=== PATIENT | female | born 1990 | race Caucasian/White ===

== ENCOUNTER 2016-06-16 18:30 | Inpatient (IN) | payer OTHER ==
[~2016-06-16] VITALS: Ht 152.4 cm; Wt 69.4 kg
[2016-06-16] MEDS ORDERED: Lactated Ringer's 1,000 ML IV PRN (20:01)
[2016-06-16] MEDS ORDERED: Hemorrhage Kit, Post Partum XX ONE (20:05)
[2016-06-16] MEDS ORDERED: Oxytocin 30 Units/500 mL LR 30 UNITS in IV Premix 1 EACH IV PRN (20:05)
[2016-06-16] MEDS ORDERED: Oxytocin 10 Unit/mL Inj IM PRN (20:05)
[2016-06-16] MEDS ORDERED: Methylergonovine 0.2 mg/mL Inj IM PRN (20:05)
[2016-06-16] MEDS ORDERED: fentaNYL-PF 50 mCg/mL 2 mL Inj IVPUSH PRN (20:05)
[2016-06-16] MEDS ORDERED: Sodium Chloride LOK Flush 10 mL Syringe IVFLUSH PRN (20:05)
[2016-06-16] MEDS ORDERED: Carboprost 250 mCg/mL Inj IM PRN (20:05)
[2016-06-16] MEDS ORDERED: Ondansetron 2 mg/mL 2 mL Inj IVPUSH PRN (20:05)
--- NOTE | 2016-06-16 20:28 | HP ---
[address] [address] HISTORY AND PHYSICAL PATIENT: ASHLEY ANDERSON : 1990 MR#: [id number] ADMIT: 06/16/2016 JOB ID: [id number] CHIEF COMPLAINT: Contractions. HISTORY OF PRESENT ILLNESS: This is a 25-year-old obstetrical patient of [facility] who is a 2, para 1, at 40 and 4/7th weeks estimated gestational age, who presents complaining of four hours of increasing intensity of contractions and stating that they are about every three minutes apart. She has no other acute complaints. Denies any unusual vaginal discharge. Baby has been moving very frequently. She denies any unusual abdominal pain. Also, denies any recent illness. No chest pain, palpitations, or shortness of breath. No swelling in her feet. No blurry vision or unusual headaches. Upon presentation, she is about 2 cm, 70% effaced, -3 station, with the baby in a vertex position, tess about every three minutes. Her prior was with twins and she delivered in September 2013 with one baby being born vaginally and the second being born secondary to breech position. This patient is wanting a procedure. Considering her prior and wanting to deliver vaginally, it was decided to admit her for expectant management and place a Pittman catheter in her cervix to help her cervix dilate and move her towards delivery. This plan was discussed with Dr. Martinez this evening. PAST MEDICAL HISTORY: Remarkable for troubles with migraines, seasonal allergies, history of pyelonephritis with the last one in 2011. Also, history of eczema. Otherwise, her medical history is unremarkable. SURGICAL HISTORY: Significant for in 2011, as well as an appendectomy at 13 years old. FAMILY HISTORY: Significant for diabetes in a maternal aunt, hypertension in paternal grandmother, and breast cancer in maternal grandmother. Otherwise is noncontributory. ALLERGIES: The patient has an allergy to SULFA causing a topical reaction of some sort and also an intolerance of PENICILLIN, KEFLEX, OXYCODONE, and MORPHINE causing her to vomit or just be "wigged out." MEDICATIONS: vitamins. Otherwise, she is on no regular medications. SOCIAL HISTORY: Patient lives on [address] with her and their two sons. 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 She has never used any tobacco, denies alcohol use or drug use. OBSTETRICAL HISTORY: Prior twin delivery in September 2013 as mentioned above. This gestation has been unremarkable except for a gap of not seeing her for three months from 15 weeks to 28 weeks because she was sick and moving her household. She has seen Obstetrics in consultation because of her history of and wanting a . She has seen Dr. Martinez who has agreed to her plans for with close observation. LABORATORY TESTS: Her blood type is O-positive. She is nonimmune to rubella. Serology is negative as well as hepatitis B and HIV and antibody screen x2. Hematocrit initially at seven weeks was 42 and at 28 weeks was 33. MSAFP test was negative. Pap smear with the initial exam was normal and GC, chlamydia was negative. Diabetic screen was negative at 28 weeks. GBS test was negative. REVIEW OF SYSTEMS: See HPI above. OBJECTIVE: A well-developed, well-nourished woman in no apparent distress, at least between contractions. She is afebrile. Pulse is 90, respiratory rate 16, blood pressure 122/71. Lungs are clear to auscultation bilaterally with good air movement. Heart is regular rate and rhythm. No significant murmurs heard. Abdomen is gravid, otherwise benign. She has normoactive bowel sounds. Extremities showed no edema and normal deep tendon reflexes. Cervical exam: She is 2 cm, 70% effaced, -3 station, vertex position with the baby's head well engaged. She is tess every three minutes or so. PLAN: To admit the patient for expectant management and provide cervical dilation with a modified Pittman tube as mentioned above. Otherwise, provide routine expectant management. The patient is not really wanting to have an epidural, so will try to provide as much supportive care as we can and proceed from there. I discussed routine expectant management issues and procedures. Also, discussed potential complications and the usual obstetrical procedures to address them, but also the possible need for surgical care if a becomes needed. I also discussed the possible need for assistance with vacuum extraction and the associated potential complications. All of her questions were answered and she expressed understanding of these issues and is willing to proceed. I have consulted with Dr. Martinez who is foot and ankle surgeon and is my obstetrical backup today. ZARINA
[2016-06-16 21:16] LABS: Mean Corpuscular Hemoglobin 24.2 pg (27.0-35.0); Mean Corpuscular Volume 77.6 fL (81-100)
[2016-06-17] MEDS ORDERED: Lactated Ringer's 1,000 ML IV SCH (05:47)
[2016-06-17] MEDS ORDERED: Oxytocin 10 Unit/mL Inj IM PRN (05:50)
[2016-06-17] MEDS ORDERED: Carboprost 250 mCg/mL Inj IM PRN (05:50)
[2016-06-17] MEDS ORDERED: Hemorrhage Kit, Post Partum XX ONE (05:50)
[2016-06-17] MEDS ORDERED: oxyCODONE-Acetamin 5-325 mg Tablet PO PRN (05:50)
[2016-06-17] MEDS ORDERED: Witch Hazel-Glycerin Pads TOPICAL PRN (05:50)
[2016-06-17] MEDS ORDERED: LANOlin HPA 7 Gm Ointment TOPICAL PRN (05:50)
[2016-06-17] MEDS ORDERED: Measles-Mumps-Rubella Vaccine 0.5 mL Inj SUBQ ONE (05:50)
[2016-06-17] MEDS ORDERED: Benzocaine (Dermoplast) 20% 60 Gm Spray TOPICAL PRN (05:50)
[2016-06-17] MEDS ORDERED: Methylergonovine 0.2 mg/mL Inj IM PRN (05:50)
[2016-06-17] MEDS ORDERED: Oxytocin 30 Units/500 mL LR 30 UNITS in IV Premix 1 EACH IV PRN (05:50)
[2016-06-17] MEDS ORDERED: Ascorbic Acid 500 mg Tablet PO SCH (08:00)
--- NOTE | 2016-06-17 09:32 | OP ---
[address] [address] OPERATIVE REPORT PATIENT: ASHLEY ANDERSON : 1990 MR#: [id number] ADMIT: 06/16/2016 JOB ID: [id number] DATE OF SURGERY: 06/17/2016 SURGEON: Gonzalez Chang MD PREOPERATIVE DIAGNOSIS(ES): POSTOPERATIVE DIAGNOSIS(ES): DELIVERY NOTE: Patient had a spontaneous vaginal delivery as described below. Please see my admission H and P for her admitting circumstances. Th patient was admitted at 40 weeks and 3 days estimated gestational age with regular contractions. She was 2.5 cm or so with a cervix that was 70% effaced, and despite the contractions regularly for a couple of hours her cervix still really was not changing. Dr. Martinez, my obstetrical colleague, who is front end wheel loader operator and my databases software consultant was available and recommended placement of a cervical balloon for cervical dilation. This was placed by Dr. Martinez at about 2215 on June 16. At that time, it was placed she was about 2.5 cm and 70% effaced, with the baby in a vertex position at about -3 station. The catheter worked excellently and fell out at 0135 on June 17, and she was found to be about 6 cm at the time. She continued to contract regularly. She was not using any medical pain management, specifically declined epidural as well as narcotics. heart tracing remained very reactive in fact much more so than normal and had a Systane variability that was difficult to determine what the heart rate baseline was. It seemed to range from 150-180 generally, although throughout the whole labor process demonstrated excellent variability with excellent accelerations that were very frequent. She was found to be completely dilated and effaced at 0442 and began pushing. The baby's head was in an occiput anterior position. She delivered the baby's head. There was no nuchal cord noted and then the rest of the delivery was completed at 4:54 over an intact perineum. The baby was placed on mom's tummy and 60 seconds were waited and then the cord was clamped and cut. The placenta delivered spontaneously and intact at 0500. Inspection of the perineum revealed no lacerations. Also inspection of the cervix also showed no cervical injury. Estimated blood loss 150 cc. The baby was a baby girl with Apgars of 9 and 9, and weight is still pending. Afterwards she continued to have vaginal bleeding that was more than usual and 800 mg of Cytotec was inserted rectally for hemostasis. We will continue to monitor very closely. Routine orders have been written.
[2016-06-18 06:24] LABS: Mean Corpuscular Volume 78.5 fL (81-100)
--- NOTE | 2016-06-18 08:03 | PCM.DIOB ---
Obstetrical Disch Instruction Date of Service: Jun 18, 2016 Dates of Hospitalization Date of Hospital Admission Jun 16, 2016 at 19:15 Providers Admitting Physician: Gonzalez Chang MD Primary Care Physician: Gonzalez Chang MD Attending Physician: Gonzalez Chang MD Discharge Diagnosis Problems: (1) Normal spontaneous vaginal delivery Status: Resolved ICD Code: O80 Diet Discharge Diet: No restrictions Activity Discharge Activity-General: Pelvic Rest for 6 weeks, Try not to overdue, Be up and about, Balance rest and activity Dressing and Incisional Care Hygiene: May shower Follow Up Plan Follow Up Plan f/u with me in 6 weeks and as needed. Follow-up Provider (F9): Gonzalez Chang MD Follow-up appointment: Weeks (six) Gonzalez Chang MD Jun 18, 2016 08:03
[2016-06-18 09:17] VITALS: BP 113/58; PULSE 78; RESP 16
--- NOTE | 2016-06-18 16:39 | DIS ---
[address] [address] DISCHARGE SUMMARY PATIENT: ASHLEY ANDERSON : 1990 MR#: [id number] ADMIT: 06/16/2016 JOB ID: [id number] DIS: 06/18/2016 DISCHARGE DIAGNOSIS: Term , resolved, with spontaneous vaginal delivery. CONSULTATIONS: None. PROCEDURES: The patient had a spontaneous vaginal on the morning of June 17. Please see my delivery note for full details. HISTORY AND PHYSICAL: Please see my admission H and P for full details of her presenting circumstances. HOSPITAL COURSE: The patient presented to the Center with increasing frequency and intensity of contractions at 40 3/7ths weeks gestational age. After discussion with my obstetrical backup/consultation, we decided to admit her for expectant management and to induce her labor by using a balloon catheter for cervical dilation. This was performed and resulted in excellent dilation of the cervix, and she then proceeded fairly nicely in labor to completely dilated and effaced and had a vaginal without any significant problems. Her course has been unremarkable, and she has no acute complaints specifically at this time. Denies any significant breast discomfort or perineal discomfort and reports decreasing lochia. DISCHARGE PHYSICAL EXAM: Shows her vital signs to be normal. Lungs are clear to auscultation bilaterally with good air movement. Heart is regular rate and rhythm. No significant murmurs heard. Abdomen is benign. Uterus is firm and below the umbilicus. Extremities show no edema and normal deep tendon reflexes. ASSESSMENT AND PLAN: Status post spontaneous vaginal delivery approximately 24 hours ago. The patient is doing well and plan on discharging home today. She declines any discharge medications, stating that she has some ibuprofen at home she can use if she needs it. The patient was told to follow up with me in six weeks, otherwise as needed.
== END 2016-06-18 09:46 | disposition home or self-care (01) | DRG 560 ==
LOC: FBCO 18:30 → FBC 19:15
PROVIDERS: ADMIT Family Medicine; ATTEND Family Medicine
PROC: 10E0XZZ Delivery of Products of Conception, External Approach (ICD-10-PCS; principal; 2016-06-17)
DX: O80 Encounter for full-term uncomplicated delivery (principal); Z37.0 Single live birth; Z3A.40 40 weeks gestation of pregnancy

== ENCOUNTER 2016-10-01 18:19 | Emergency (ER) | payer OTHER ==
[~2016-10-01] VITALS: Ht 152.4 cm; Wt 56.8 kg
[2016-10-01 18:24] VITALS: BP 109/62; PULSE 80; RESP 16; O2SAT 98
[2016-10-01 19:38] LABS: BASOPHILS % (AUTO) 0.4 % (0-3); EOSINOPHILS % (AUTO) 3.4 % (0-5); MONOCYTES % (AUTO) 8.8 % (4-12); Mean Corpuscular Hemoglobin 26.2 pg (27.0-35.0); Mean Corpuscular Volume 78.5 fL (81-100); NEUTROPHILS % (AUTO) 50.2 % (40-74); Platelet Count 249 bil/L (150-400)
[2016-10-01 19:55] LABS: Magnesium 1.8 mg/dL (1.6-2.6)
[2016-10-01 22:39] LABS: APPEARANCE,URINE HAZY (CLEAR,HAZY); COLOR,URINE YELLOW (YELLOW); OCCULT BLOOD,URINE TRACE (NEGATIVE); PH,URINE 6.5 (5.0-8.0); UROBILINOGEN,URINE NORMAL (NORMAL)
--- NOTE | 2016-10-02 00:01 | ED.REPORT ---
HPI-Abd Pain F Under 40 Date of Service Oct 01, 2016 ED Provider: Forest Mcguire MD Patient is a 26-year-old female with history of similar episodes approximately 3 years ago who comes to the emergency department with a 10 week history of occasional abdominal pain presenting as an attack. She experiences acute onset bloating, epigastric pain described as pressure associated with right mid upper back pressure as well. She notices no association with certain foods and has tried various elimination diet. Symptoms seem to be relieved with some burping or belching and sometimes with small sips of soda. She will occasionally have vomiting as well. These episodes will last 2-8 hours. Patient is 15 weeks from [place] and had twin approximately 3 years ago. After which she had similar symptoms that resolved on their own after a few months. Her mother has had similar symptoms and had cholecystectomy. Patient reports occasional diarrhea and lifelong occasional constipation. She is having no burning or pain with urination. She is not experiencing any headache, chest pain, shortness of breath, dizziness or lightheadedness. Nursing Notes Stated Complaint: CHEST PAIN, ABDOMINAL PAIN Chief Complaint: Female Abdominal Pain Nursing Notes Reviewed: Yes Allergies: Coded Allergies: Penicillins (Verified Allergy, Severe, Anaphylaxis, 10/01/16) cephalexin (Verified Allergy, Severe, Anaphylaxis, 10/01/16) Uncoded Allergies: SULFA (Allergy, Severe, Anaphylaxis, 10/01/16) narcotics (Adverse Reaction, Intermediate, 06/16/16) nausea, hallucinations No Active Prescriptions or Reported Meds General Time Seen by MD: 22:05 Chief Complaint Abdominal pain Hx Obtained From: Patient Arrived By: Walk-in Sudden in Onset?: No Onset Occurred: More than a week ago... (2 months) Past Medical History Past Medical History Episodic epigastric/RUQ abdominal pain Past Surgical History section 2 Appendectomy 2003 [place] tooth extraction Family History Mother with cholelithiasis and cholecystectomy Smoking History Never Smoker Social History Alcohol Use: Denies alcohol use Drug Use: Denies drug use Other Social History: Good social support, Ambulatory Status Independent Review of Systems A comprehensive review of systems was conducted with the patient and found to be negative except as above in the History of Present Illness. Physical Exam Initial Vital Signs Vital Signs (First) Date Time Temp Pulse Resp B/P Pulse Ox O2 Delivery O2 Flow Rate FiO2 10/01/16 18:24 36.7 80 16 109/62 98 Room Air Initial VS: Reviewed, Vital signs normal Head / Eyes: Atraumatic, Normocephalic, PERRL ENT: Mucous membranes moist, Conjunctiva normal, No scleral icterus Neck: Supple, Non-tender, Full range of motion Lymphatic: No lymphadenopathy Extremities: Vascular intact, Neuro intact, No swelling, No tenderness Skin: Warm, Dry, No cyanosis Neurologic: Alert, Oriented, Nonfocal Psychiatric: Mood/affect normal, Behavior normal, Normal thought content General/Constitutional: Awake, Alert, No acute distress, Well appearing Respiratory / Chest: Breath sounds NL, Breath sounds = bilat, No respiratory distress, No rales, No rhonchi, No wheezing Cardiovascular: Heart rate NL, Regular rhythm, Heart sounds NL, Peripheral circulation NL Abdomen: Atraumatic, Soft, No guarding, BS normoactive, No distention Tenderness/Guarding/Rebound: Positive: Tender RUQ... (Moderate) Easily reducible small ventral hernia, palpable diastases recti Back: Atraumatic, Non-tender Interpretation & Diagnostics Lab Results Interpretation Result Diagram: 10/01/16192610/01/161926 Test 10/01/16 19:27 10/02/16 00:03 White Blood Count 7.7th/mm3 (3.8-10.1) Red Blood Count 4.74mil/mm3 (3.90-5.20) Hemoglobin 12.4g/dL (12.0-15.6) Hematocrit 37.2% (35.0-46.0) Mean Corpuscular Volume 78.5fL (81-100) Mean Corpuscular Hemoglobin 26.2pg (27.0-35.0) Mean Corpuscular Hemoglobin Concent 33.3% (32.0-37.0) Red Cell Distribution Width 15.7% (12.3-15.4) Platelet Count 249bil/L (150-400) Neutrophils (%) (Auto) 50.2% (40-74) Lymphocytes (%) (Auto) 37.1% (14-46) Monocytes (%) (Auto) 8.8% (4-12) Eosinophils (%) (Auto) 3.4% (0-5) Basophils (%) (Auto) 0.4% (0-3) Sodium Level 142mEq/L (134-144) Potassium Level 3.9mEq/L (3.5-5.2) Chloride Level 105mEq/L (97-108) Carbon Dioxide Level 21mmol/L (18-29) Blood Urea Nitrogen 15mg/dL (6-20) Creatinine 0.65mg/dL (0.57-1.00) Estimat Glomerular Filtration Rate 159mL/min (>59) Glucose Level 87mg/dL (60-99) Calcium Level 9.1mg/dL (8.5-10.1) Magnesium Level 1.8mg/dL (1.6-2.6) Total Bilirubin 0.2mg/dL (0.0-1.2) Aspartate Amino Transf (AST/SGOT) 23U/L (0-50) Alanine Aminotransferase (ALT/SGPT) 21U/L (0-32) Alkaline Phosphatase 79U/L (25-150) Total Protein 7.4g/dL (6.4-8.4) Albumin 4.4g/dL (3.4-5.0) Lipase 25U/L (13-60) Hold Dewey Top Tube Received (Received) Urine Color Straw (YELLOW) Urine Appearance Hazy (CLEAR,HAZY) Urine pH 6.5 (5.0-8.0) Urine Specific [place] 1.020 (1.003-1.035) Urine Protein Negativemg/dL (NEG,TRACE) Urine Glucose (UA) Negativemg/dL (NEGATIVE) Urine Ketones Negativemg/dL (NEGATIVE) Urine Occult Blood Negative (NEGATIVE) Urine Nitrite Negative (NEGATIVE) Urine Bilirubin Negative (NEGATIVE) Urine Urobilinogen Normalmg/dL (NORMAL) Urine Leukocyte Esterase Negative (NEGATIVE) Urine RBC 0-2/hpf (0-2) Urine WBC 0-5/hpf (0-5) Urine Epithelial Cells Few/hpf (NONE-MOD) Urine Crystals None seen (NONE SEEN) Urine Bacteria None/hpf (NONE-FEW) Urine Hyaline Casts None/lpf (NONE) Urine Granular Casts None seen (NONE SEEN) Urine Waxy Casts None seen (NONE SEEN) Urine Red Blood Cell Casts None seen (NONE SEEN) Urine White Blood Cell Casts None seen (NONE SEEN) Urine Mucus None seen (None Seen) Urine Trichomonas None seen (NONE SEEN) Urine Yeast None (NONE SEEN) Urinalysis Comment Renal epi seen Urine Culture Reflexed Not indicated Lab Results Interpretation: Normal lipase, initial urine with epithelial cells- retested, MCV decreased-discussed with patient for outpatient workup. Re-Eval/Medical Decision Med Decision/Clinical Course Patient is a 26-year-old female presents with colicky epigastric and right upper quadrant abdominal discomfort described as an attack with bloating and nausea. She has no previous imaging or workup for gallbladder disease however she feels that her gallbladder is related to what is going on. Her mother had gallbladder problems with cholelithiasis and subsequent cholecystectomy. Laboratory evaluation shows no evidence of leukocytosis, transaminases, bilirubin, and platelets are normal indicating normal liver function. Ultrasound preliminary report shows no evidence of cholelithiasis, cholecystitis , or biliary ductal dilation. Symptoms may in part be related to gastritis. Patient's primary care provider is Dr. Richey. She has an appointment to follow up with him within the next 2 weeks. Counseled Regarding: Diagnosis, Need for follow-up, When/why to return to ED Discharge & Departure Primary Impression: Gastritis Gastritis type: unspecified gastritis Chronicity: chronic Gastritis bleeding: without bleeding Qualified Code: K29.50 - Unspecified chronic gastritis without bleeding Disposition: Home Discharge Condition All VS Reviewed: Yes Condition: Stable Patient Instructions: Acute Abdominal Pain (ED), Gastritis (ED) Additional Instructions: Thank you for entrusting us with your care today. Abdominal ultrasound showed no evidence of stones in your gallbladder or infection in the area. There was no evidence of obstruction either. It is possible that you are not having some inflammation of your GI tract. Please follow up with Dr. Richey for these symptoms. Please return to the emergency department if you become so well that you are not able to hold down fluids for 48 hours, or pain that does not improve with associated fever. It was a pleasure to meet you. Referrals: Gonzalez Chang MD (PCP) Attending Statment As attending of record for this patient, I conducted an independent history and physical examination, and agree with the documentation per the resident note above, and as amended. Siobhan Prado DO Oct 02, 2016 00:01 Forest Mcguire MD Oct 02, 2016 08:05
[2016-10-02 00:28] LABS: APPEARANCE,URINE HAZY (CLEAR,HAZY); COLOR,URINE STRAW (YELLOW); OCCULT BLOOD,URINE NEGATIVE (NEGATIVE); PH,URINE 6.5 (5.0-8.0); UROBILINOGEN,URINE NORMAL (NORMAL)
[2016-10-02 00:33] VITALS: BP 105/66; PULSE 79; RESP 16; O2SAT 99
--- NOTE | 2016-10-02 10:47 | DRSVH ---
PROCEDURE: US ABDOMEN INDICATIONS: r/o cholelithiasis and hydronephrosis TECHNIQUE: Real-time scanning was performed of the abdominal and retroperitoneal organs, with image documentatio n. COMPARISON: [facility] Ultrasound, US, ABDOMEN SONOGRAM, 03/25/2014, 10:44. FINDINGS: Liver length: 14.54 cm Gallbladder Wall Thickness: 1.30 mm CHD: 2 mm CBD: 1.30 mm Spleen length: 9.72 cm Right kidney length: 9.9 cm Left kidney length: 9.85 cm Aorta(Proximal): 1.71 cm Aorta(Mid): 1.2 cm Aorta(Distal): 9.50 mm RCIA: 0.5 cm LCIA: 0.5 cm Liver: Liver is normal in size and homogeneous in echotexture. Gallbladder: No gallstones identified. Normal gallbladder wall. No pericholecystic fluid. Negativ e sonographic Blum sign. Biliary ducts: Intrahepatic bile ducts are non-dilated. Extrahepatic bile duct caliber is normal. Normal is 6-7 mm or less in diameter, or 10 mm or less post-cholecystectomy. Pancreas: Visualized portions of the pancreas are sonographically normal. Spleen: Spleen is normal in size and homogeneous in echotexture. Kidneys: Kidneys are normal in size and echotexture. No hydronephrosis or nephrolithiasis. No maria d d masses. Aorta: Visualized aorta is normal in caliber at less than 3 cm. Iliacs: Proximal common iliac arteries are normal in caliber at less than 2.5 cm. IVC: Intrahepatic inferior vena cava is patent. Miscellaneous: No free abdominal fluid. IMPRESSION: No source for right upper quadrant pain identified. Dictated by: Santo Aragon [facility] Interpreted: Silvestre Barahona MD on 10/02/2016 at 8:57 Approved by: Silvestre Barahona M.D. on 10/02/2016 at 10:45
== END 2016-10-02 00:34 | disposition home or self-care (01) ==
LOC: SED 18:19
DX: K29.50 Unspecified chronic gastritis without bleeding (principal); Z90.89 Acquired absence of other organs; Z88.2 Allergy status to sulfonamides; Z88.0 Allergy status to penicillin; Z88.5 Allergy status to narcotic agent; Z88.1 Allergy status to other antibiotic agents